=== PATIENT | female | born 1950 | race Caucasian/White ===

== ENCOUNTER 2018-03-29 08:45 | Emergency (ER) | payer MEDICARE, OTHER ==
[~2018-03-29] VITALS: Ht 162.6 cm; Wt 44.1 kg
[~2018-03-29 08:45] MED LIST: PREDNISONE10 MG PO
[2018-03-29 08:48] VITALS: Ht 162.6 cm; Wt 44.1 kg
[2018-03-29] MEDS ORDERED: LEXAPRO20 MG PO (08:52)
[2018-03-29] MEDS ORDERED: ALBUTEROL SULF8.5 GM INH (08:53)
[2018-03-29 09:14] LABS: BASOPHILS 0.3 % (0-2); EOSINOPHILS 0.3 % (0-7); HEMATOCRIT 39.2 % (36.0-48.0); HEMOGLOBIN 12.7 g/dL (12-16); IMMATURE GRANULOCYTES 0.2 % (0-5); LYMPHOCYTES 16.7 % (15-50); MCH 30.3 pg (26.0-34.0); MCHC 32.4 g/dL (31.0-37.0); MCV 93.6 fL (80.0-100.0); MEAN PLATELET VOLUME 9.4 fL (7.4-10.4); MONOCYTES 7.9 % (2-11); NEUTROPHILS 74.6 % (40-80); PLATELET COUNT 310 10x3/uL (130-400); RBC 4.19 10x6/uL (4.00-5.40); RDW 14.3 % (11.5-14.5)
[2018-03-29 09:29] LABS: APPEARANCE CLEAR (CLEAR); BILIRUBIN NEGATIVE (NEGATIVE); COLOR YELLOW (YELLOW); GLUCOSE NEGATIVE (NEGATIVE); KETONE LARGE mg/dL (NEGATIVE); NITRITE NEGATIVE (NEGATIVE); PROTEIN TRACE mg/dL (NEGATIVE); SPECIFIC GRAVITY 1.025 (1.005-1.020); UROBILINOGEN NORMAL (NORMAL)
[2018-03-29 09:30] LABS: BACTERIA FEW /hpf (NONE SEEN); EPITHELIAL CELLS 0-5 /hpf (0-5); HYALINE CAST OCC /lpf (NONE SEEN); MUCUS >1+ /lpf (NONE SEEN); RED CELLS - URINE 0-5 /hpf (0-5); WHITE CELLS - URINE 0-5 /hpf (0-5)
[2018-03-29 09:30] LABS: ALBUMIN 3.5 g/dL (3.4-5.0); ALKALINE PHOSPHATASE 43 U/L (46-116); ALT (SGPT) 9 U/L (10-68); BILIRUBIN - TOTAL 0.21 mg/dL (0.2-1.3); CALC OSMOLALITY 280 mosm/kg (275-300); CALCIUM 8.2 mg/dL (8.5-10.1); CARBON DIOXIDE 24.3 mmol/L (21.0-32.0); CHLORIDE - SERUM 103 mmol/L (98-107); CREATININE - SERUM 0.7 mg/dL (0.6-1.3); GLUCOSE 80 mg/dL (74-106); PROTEIN - SERUM 6.7 g/dL (6.4-8.2); SODIUM 140 mmol/L (136-145); UREA NITROGEN 20 mg/dL (7-18); eGFR NON AFRICAN AMERICAN 88 mL/min (90-120)
[2018-03-29 09:33] LABS: MAGNESIUM - SERUM 1.9 mg/dL (1.8-2.4); TROPONIN-I < 0.017 ng/mL (0.000-0.060)
[2018-03-29] MEDS ORDERED: ZOFRAN4 MG PO (11:38)
[2018-03-29 12:32] VITALS: BP 122/64
== END 2018-03-29 12:33 | disposition home or self-care (01) ==
LOC: D.ER 08:45
PROVIDERS: Family Medicine
DX: R09.02 Hypoxemia (principal); J44.9 Chronic obstructive pulmonary disease, unspecified; E86.0 Dehydration; F17.200 Nicotine dependence, unspecified, uncomplicated

== ENCOUNTER 2018-09-19 08:40 | Inpatient (IN) | payer MEDICARE, OTHER ==
[~2018-09-19] VITALS: Ht 162.6 cm; Wt 40.8 kg
--- NOTE | ~2018-09-19 | EC ---
PATIENT:GIORGIO GRAY DATE OF SERVICE: 09/19/18 SEX: F MEDICAL RECORD: [id number] DATE OF : [birth year] LOCATION:D.[facility] [place] AGE OF PATIENT: 68 ADMISSION DATE: 09/19/18 REFERRING PHYSICIAN: INTERPRETING PHYSICIAN: SUMEET FERNANDES MD ECHOCARDIOGRAM REPORT ECHO CHARGES 5 ECHO LIMITED Date: 09/20/18 CLINICAL DIAGNOSIS: SOB HX COPD ECHOCARDIOGRAPHIC MEASUREMENTS (adult normal given) AC root (d.<3.7cm) 3.7 cm LV Septum d (<1.2 cm> 1.2 cm Valve Excursion 2.2 cm LV Septum (systole) 1.4 cm Left Atria (s.<4.0cm> 4.0 cm LVPW d(<1.2cm) 1.2 cm RV (d.<2.3cm) 3.6 cm LVPW (sytole) 1.4 cm LV diastole(<5.6CM) 4.8 cm MV E-F(>70mm/sec) cm LV systole 2.7 cm LVOT Diameter cm MV exc.(>10mm) 2.2 cm Est.ejection fraction (50-75%) % DOPPLER: LVIT cm/sec A cm/sec E cm/sec LA cm/sec RVSP 21 mmHg LVOT cm/sec AOP1/2T m/s Asc. Ao cm/sec RVOT cm/sec RA 67 cm/sec PA 128 cm/sec AV Gradient Peak mmHg AV Mean mmHg AV Area cm MV Gradient Peak mmHg MV Mean mmHg MV Area cm COMMENTS: [employer] Production Line: Prasanna TILLMAN Marketing Writer: 1 Dr. Fernandes TAPE# PACS Pericardial Effusion N DATE OF SERVICE: 09/20/2018 PROCEDURE: Echocardiogram. FINDINGS: 1. Left ventricular chamber size is within normal limits. Left ventricular systolic function is normal. Overall ejection fraction estimated at 60%. 2. Left atrium is upper limits of normal at 4.0 cm. Right atrium and right ventricular chamber sizes are mildly dilated. 3. Valvular structures have normal structure and motion. ECHOCARDIOGRAM REPORT [id number] GIORGIO GRAY 4. Doppler interrogation reveals trace mitral regurgitation, trace tricuspid regurgitation, no other valvular insufficiency or stenosis. Pulmonary systolic pressure is estimated at 21 mmHg. 5. No evidence of pericardial effusion or left ventricular thrombus. TRANSINT:[id number] Voice Confirmation ID: [id number] DOCUMENT ID: [id number] SUMEET FERNANDES MD CC: [id number] DICTATION DATE: 09/20/18 1215 CLOTHING EXAMINER: 09/20/18 1228 ADM IN [place] [id number] [facility], [facility]
[~2018-09-19 08:40] MED LIST changes: +ALBUTEROL SULF8.5 GM INH; +LEXAPRO20 MG PO; +ZOFRAN4 MG PO
--- NOTE | 2018-09-19 09:05 | NUR ---
PT REFUSING ABGs AT THIS TIME.
--- NOTE | 2018-09-19 09:15 | NUR ---
PT REPORTS IMPROVED SOB AFTER INITIAL BREATHING TREATMENT.
[2018-09-19 09:32] LABS: BASOPHILS 0.1 % (0-2); EOSINOPHILS 0.4 % (0-7); HEMATOCRIT 36.2 % (36.0-48.0); HEMOGLOBIN 11.2 g/dL (12-16); IMMATURE GRANULOCYTES 0.3 % (0-5); LYMPHOCYTES 4.8 % (15-50); MCH 29.6 pg (26.0-34.0); MCHC 30.9 g/dL (31.0-37.0); MCV 95.8 fL (80.0-100.0); MEAN PLATELET VOLUME 9.1 fL (7.4-10.4); MONOCYTES 12.5 % (2-11); NEUTROPHILS 81.9 % (40-80); PLATELET COUNT 313 10x3/uL (130-400); RBC 3.78 10x6/uL (4.00-5.40); RDW 14.9 % (11.5-14.5); WBC 16.5 10x3/uL (4.8-10.8)
[2018-09-19 09:36] LABS: APTT 31.3 SECONDS (22.8-39.4); INR 1.19 (0.85-1.17); PROTIME 14.6 SECONDS (11.6-15.0)
[2018-09-19 09:38] LABS: D-DIMER-QUANTITATIVE 3.7 ug/mLFEU (0.20-0.54)
[2018-09-19 09:40] LABS: ALBUMIN 2.7 g/dL (3.4-5.0); ALKALINE PHOSPHATASE 75 U/L (46-116); ALT (SGPT) 8 U/L (10-68); BILIRUBIN - TOTAL 0.37 mg/dL (0.2-1.3); CALC OSMOLALITY 279 mosm/kg (275-300); CALCIUM 8.4 mg/dL (8.5-10.1); CARBON DIOXIDE 36.7 mmol/L (21.0-32.0); CHLORIDE - SERUM 99 mmol/L (98-107); CREATININE - SERUM 0.5 mg/dL (0.6-1.3); GLUCOSE 93 mg/dL (74-106); POTASSIUM - SERUM 4.2 mmol/L (3.5-5.1); PROTEIN - SERUM 6.7 g/dL (6.4-8.2); SODIUM 140 mmol/L (136-145); UREA NITROGEN 16 mg/dL (7-18); eGFR NON AFRICAN AMERICAN > 90 mL/min (90-120)
[2018-09-19 09:53] LABS: CKMB 0.5 U/L (0.0-3.6); CREATINE KINASE 64 UL (21-215); PRO BNP 709 pg/mL (0-125); TROPONIN-I < 0.017 ng/mL (0.000-0.060)
--- NOTE | 2018-09-19 10:15 | NUR ---
NO ACUTE CHANGES. WILL CON'T TO MONITOR.
[2018-09-19 10:21] VITALS: BP 114/66
[2018-09-19 14:17] VITALS: BP 86/49; BMI 15.4
[2018-09-19 17:32] LABS: % SATURATION 5 % (15-55); IRON 19 ug/dl (35-150); TOTAL IRON BIND CAPACITY 329 ug/dl (260-445); UNSAT IRON BIND CAPACITY 310 ug/dl (150-375)
[2018-09-19 18:03] VITALS: BP 104/57
[2018-09-19 20:00] VITALS: BP 106/64
--- NOTE | 2018-09-20 00:06 | NUR ---
PT RECEIVED WITH EYES OPEN WATCHING TV. NO S/S OF DISTRESS. MEDICATIONS ORDERS NOT IN PYXIS WITH BRAND SALES CONSULTANT NOTIFIED AND ORDERS PRINTED. RECEIVED MEDICATIONS AND GIVEN TO PT WHEN RECEIVED, PT TOLERATED WELL. PT STATES THAT SHE IS NOT DIABETIC AND EDUCATED THAT GLUCOSE WAS ELEVATED AND THAT STEROIDS ALSO INCREASE BLOOD GLUCOSE LEVELS, PT STATES UNDERSTANDING. NO NEEDS MADE KNOWN. CALL LIGHT IN REACH. WILL CONTINUE TO OBSERVE.
--- NOTE | 2018-09-20 02:19 | NUR ---
PT RESTING WITH EYES CLOSED AND CHEST RISING. NO S/S OF DISTRESS. WILL CONTINUE TO OBSERVE.
[2018-09-20 03:29] LABS: APPEARANCE CLEAR (CLEAR); COLOR YELLOW (YELLOW)
[2018-09-20 03:30] LABS: BILIRUBIN NEGATIVE (NEGATIVE); GLUCOSE 250 mg/dL (NEGATIVE); KETONE NEGATIVE (NEGATIVE); NITRITE NEGATIVE (NEGATIVE); PROTEIN 1+ mg/dL (NEGATIVE); UROBILINOGEN NORMAL (NORMAL)
[2018-09-20 03:31] LABS: BACTERIA FEW /hpf (NONE SEEN); EPITHELIAL CELLS 0-5 /hpf (0-5); RED CELLS - URINE 0-5 /hpf (0-5); WHITE CELLS - URINE 0-5 /hpf (0-5)
[2018-09-20 04:00] VITALS: BP 107/40
[2018-09-20 05:28] LABS: BASOPHILS 0 % (0-2); EOSINOPHILS 0 % (0-7); HEMATOCRIT 34.1 % (36.0-48.0); HEMOGLOBIN 10.5 g/dL (12-16); IMMATURE GRANULOCYTES 0.3 % (0-5); LYMPHOCYTES 3.1 % (15-50); MCHC 30.8 g/dL (31.0-37.0); MCV 94.2 fL (80.0-100.0); MONOCYTES 3.3 % (2-11); NEUTROPHILS 93.3 % (40-80); PLATELET COUNT 317 10x3/uL (130-400); RBC 3.62 10x6/uL (4.00-5.40); RDW 14.3 % (11.5-14.5)
[2018-09-20 05:45] LABS: CALCIUM 8.4 mg/dL (8.5-10.1); CARBON DIOXIDE 39.1 mmol/L (21.0-32.0); CHLORIDE - SERUM 98 mmol/L (98-107); CREATININE - SERUM 0.5 mg/dL (0.6-1.3); SODIUM 140 mmol/L (136-145); eGFR NON AFRICAN AMERICAN > 90 mL/min (90-120)
--- NOTE | 2018-09-20 05:49 | NUR ---
PT REFUSED TELEMETRY. DID WEAR IT FOR A COUPLE HOURS. HR 70 NORMAL SINUS. WILL CONTINUE TO OBSERVE.
[2018-09-20 05:50] LABS: CALC OSMOLALITY 280 mosm/kg (275-300); GLUCOSE 147 mg/dL (74-106); POTASSIUM - SERUM 3.5 mmol/L (3.5-5.1); UREA NITROGEN 9 mg/dL (7-18)
[2018-09-20 05:53] LABS: WBC 12.3 10x3/uL (4.8-10.8)
--- NOTE | 2018-09-20 07:37 | NUR ---
PT RECIEVING BREATHING TREATMENT. ALERT AND ORIENTED X4. NO S/S OF DISTRESS. BED LOW CALL LIGHT WITHIN REACH. WILL CONTINUE TO MONITOR.
--- NOTE | 2018-09-20 08:00 | NUR ---
LYING IN BED,WITHOUT NEEDS.CALL LIGHT IN REACH
[2018-09-20 08:15] VITALS: BP 117/72
[2018-09-20 12:15] VITALS: BP 99/57
[2018-09-20 13:26] VITALS: Ht 162.6 cm; Wt 40.8 kg
--- NOTE | 2018-09-20 13:59 | NUR ---
PT WALKING AROUND UNIT WITH PT. PT O2-92% ON ROOM AIR. NO S/S OF DISTRESS AT THIS TIME. BED LOW CALL LIGHT WITHIN REACH. WILL CONTINUE TO MONITOR.
--- NOTE | 2018-09-20 16:09 | NUR ---
PT 22G IV DC'D AT THIS TIME. CATHETER TIP IN PLACE. DISCHARGE,WOUND CARE, AND MEDICATION WENT OVER WITH PT. PT WHEELED TO FRONT AND LEFT IN PRIVATE VEHICILE. VITALS STABLE.
--- NOTE | 2018-09-20 16:24 | NUR ---
PT RESTING IN BED AT THIS TIME. NO S/S OF DISTRESS. VITALS STABLE. CALL LIGHT WITHIN REACH. WILL CONTINUE TO MONITOR.
--- NOTE | 2018-09-20 19:40 | NUR ---
SITTING UP IN BED. ALERT AND ORIENTED X4. UD IN PROGRESS. DENIES PAIN. SOB NOTED. O2 @ 3L/NC. RESP IRREG. BBS DIMINISHED BILAT. REPORTS PROD COUGH WITH CLEAR SPUTUM. BRUISES NOTED TO RUE. NO EDEMA NOTED. REFUSES SCDS AND TELEMETRY. SALINE LOCK NOTED TO LT WRIST. NO DISTRESS. AMBULATORY. SR ELEVATED X2. CL IN REACH.
[2018-09-20 20:19] VITALS: BP 110/65
--- NOTE | 2018-09-20 20:49 | NUR ---
REFUSED COLACE DURING MED PASS. STARTED TO REFUSE INSULIN. EXPLAINED TO PT THAT SHE WAS TAKING STEROIDS VIA IV AND IT WAS CAUSING HER GLUCOSE TO RISE AND THAT SHE NEEDED IT NOW. SHE AGREED.
--- NOTE | 2018-09-21 00:25 | NUR ---
LYING IN BED WITH EYES CLOSED. RESP EVEN AND NONLABORED. NO DISTRESS. CL IN REACH.
[2018-09-21 00:29] VITALS: BP 120/60
[2018-09-21 04:31] VITALS: BP 103/57
[2018-09-21 08:32] VITALS: BP 111/68
[2018-09-21 10:05] LABS: BASOPHILS 0.1 % (0-2); EOSINOPHILS 0 % (0-7); HEMATOCRIT 33.4 % (36.0-48.0); HEMOGLOBIN 10.5 g/dL (12-16); IMMATURE GRANULOCYTES 0.6 % (0-5); LYMPHOCYTES 4.3 % (15-50); MCHC 31.4 g/dL (31.0-37.0); MCV 92.3 fL (80.0-100.0); MEAN PLATELET VOLUME 8.7 fL (7.4-10.4); MONOCYTES 2.9 % (2-11); NEUTROPHILS 92.1 % (40-80); PLATELET COUNT 372 10x3/uL (130-400); RBC 3.62 10x6/uL (4.00-5.40); RDW 14.2 % (11.5-14.5)
[2018-09-21 10:08] LABS: WBC 18.3 10x3/uL (4.8-10.8)
[2018-09-21 10:41] LABS: ALBUMIN 2.5 g/dL (3.4-5.0); ALKALINE PHOSPHATASE 64 U/L (46-116); ALT (SGPT) 9 U/L (10-68); BILIRUBIN - TOTAL 0.17 mg/dL (0.2-1.3); CALC OSMOLALITY 280 mosm/kg (275-300); CALCIUM 8.5 mg/dL (8.5-10.1); CARBON DIOXIDE 35.1 mmol/L (21.0-32.0); CHLORIDE - SERUM 99 mmol/L (98-107); GLUCOSE 127 mg/dL (74-106); POTASSIUM - SERUM 3.1 mmol/L (3.5-5.1); PROTEIN - SERUM 5.9 g/dL (6.4-8.2); SODIUM 140 mmol/L (136-145); UREA NITROGEN 12 mg/dL (7-18); eGFR NON AFRICAN AMERICAN 88 mL/min (90-120)
[2018-09-21 10:42] LABS: CREATININE - SERUM 0.7 mg/dL (0.6-1.3)
--- NOTE | 2018-09-21 12:45 | NUR ---
PT IV INFILTRATED. 20G CATHETER DC'D WITH TIP IN PLACE. PT EATING LUNCH AT THIS TIME. WILL CONTINUE TO MONITOR.
--- NOTE | 2018-09-21 12:50 | MORECARE ---
CASE MANAGEMENT DISCHARGE SUMMARY PATIENT: GIORGIO GRAY UNIT: [id number] ADM DATE: 09/19/18 AGE: 68 : 51 SEX: F ROOM/BED: D.2230 AUTHOR: LYNN,DOC PHYSICIAN: REFERRING PHYSICIAN: IVY CONTI MD DATE OF SERVICE: 09/21/18 Discharge Plan Patient Name: GIORGIO GRAY Facility: [facility]:[place] : 1950 Planned Disposition: Home Anticipated Discharge Date: Discharge Date: Expected LOS: Initial Reviewer: [email or web address] Initial Review Date: 09/21/2018 Generated: 09/21/18 1:49 pm Comments DCP- Discharge Planning Updated by [id number]: Rena Brandt on 09/21/18 11:[address] Patient Name: GIORGIO GRAY Admission Status: ER Accout number: [id number] Admission Date: 09-19-2018 : 1950 Admission Diagnosis: Attending: IVY CONTI Current LOS: 2 Anticipated DC Date: Planned Disposition: Home Primary Insurance: MEDICARE A & B Discharge Planning Comments: CM met with patient to complete initial dc planning assessment. CM educated patient on the CM role and verbal consent given by patient to complete assessment. CM verified patient's address, phone number, and emergency contact phone numbers. Patient lives at home with family and reports She is independent in hER care. At discharge patient plans to return home and feels this is a safe discharge. CM discussed availability of home health, rehab services, and medical equipment. Patient denied known discharge needs at this time.. . CM will continue to follow and will assist as needed with dc plans/needs. Unstacker: Rena Brandt DCPIA - Discharge Planning Initial Assessment Updated by [email or web address]: Rena Brandt on 09/21/18 12:44 pm * Is the patient Alert and Oriented? Yes * How many steps to enter\exit or inside your home? * PCP MARY * [facility] * Preadmission Environment Home with Family * ADLs Independent * Equipment Oxygen * Other Equipment NEBULIZER * Verbal permission to speak to the caregivers and representatives has been obtained from the patient. N/A * Additional services required to return to the preadmission environment? No * Can the patient safely return to the preadmission environment? Yes * Has this patient been hospitalized within the prior 30 days at any hospital? No Patient Name: GIORGIO GRAY Page [id number] at 1250 All edits/amendments must be made on the electronic document DICTATION DATE: 09/21/181248 PRODUCT DEVELOPMENT ASSISTANT: ANNE 09/21/181248 RPT#: [id number] DC DATE: STATUS: ADM IN [facility] [address] [place] [address] END OF REPORT
[2018-09-21 13:15] VITALS: BP 101/61
--- NOTE | 2018-09-21 14:39 | NUR ---
PATIENT FOUND ON RA AND SP02 WAS 86%. PLACED ON 2L/NC AND SP02 NOW 93%
--- NOTE | 2018-09-21 14:46 | MORECARE ---
CASE MANAGEMENT DISCHARGE SUMMARY PATIENT: GIORGIO GRAY UNIT: [id number] ADM DATE: 09/19/18 AGE: 68 : 51 SEX: F ROOM/BED: D.2230 AUTHOR: LYNN,DOC PHYSICIAN: REFERRING PHYSICIAN: IVY CONTI MD DATE OF SERVICE: 09/21/18 Discharge Plan Patient Name: GIORGIO GRAY Facility: [facility]:[place] : 1950 Planned Disposition: Home Anticipated Discharge Date: Discharge Date: Expected LOS: Initial Reviewer: [email or web address] Initial Review Date: 09/21/2018 Generated: 09/21/18 3:46 pm Comments DCP- Discharge Planning Updated by [id number]: Raquel Cooley on 09/21/18 1:[address] CM noted the entry by Dr. Mckinley mentioning Trilogy. I called Dr. Mckinley and he does not want me to order Trilogy for the patient. I met with patient, she is alone in the room. She will be moving Thursday to [place], [place]. She currently uses [facility] for her oxygen and nebulizer medications. I have called [facility] and they do not have any companies in [place] per Joanne. I spoke with the patient and she states she will use [facility] once she gets there. She states she will take all her equipment with her on the move and when she is established with [facility], she will change. I gave her a list of pulmonologists in [place] per her request and provided her the number for [facility] I spoke with Chante at the [facility] in [facility] and clinical faxed. Chante states they will need chart notes and oxygen saturation test and they will get whatever else they need from her doctors office. Walk test and notes faxed to [phone]. CM will continue to follow and assist with discharge planning/needs. DCP- Discharge Planning Updated by [id number]: Rnea Brandt on 09/21/18 11:[address] Patient Name: GIORGIO GRAY Admission Status: ER Accout number: [id number] Admission Date: 09-19-2018 : 1950 Admission Diagnosis: Attending: IVY CONTI Current LOS: 2 Anticipated DC Date: Planned Disposition: Home Primary Insurance: MEDICARE A & B Discharge Planning Comments: CM met with patient to complete initial dc planning assessment. CM educated patient on the CM role and verbal consent given by patient to complete assessment. CM verified patient's address, phone number, and emergency contact phone numbers. Patient lives at home with family and reports She is independent in hER care. At discharge patient plans to return home and feels this is a safe discharge. CM discussed availability of home health, rehab services, and medical equipment. Patient denied known discharge needs at this time.. . CM will continue to follow and will assist as needed with dc plans/needs. Apartment Leasing Agent: Rena Brandt DCPIA - Discharge Planning Initial Assessment Updated by [email or web address]: Rena Brandt on 09/21/18 12:44 pm * Is the patient Alert and Oriented? Yes * How many steps to enter\exit or inside your home? * PCP MARY * [facility] * Preadmission Environment Home with Family * ADLs Independent * Equipment Oxygen * Other Equipment NEBULIZER * Verbal permission to speak to the caregivers and representatives has been obtained from the patient. N/A * Additional services required to return to the preadmission environment? No * Can the patient safely return to the preadmission environment? Yes * Has this patient been hospitalized within the prior 30 days at any hospital? No Last DP export: 09/21/18 11:50 a Patient Name: GIORGIO GRAY Page [phone] at 1446 All edits/amendments must be made on the electronic document DICTATION DATE: 09/21/181445 EDI DEVELOPER: ANNE 09/21/18 1446 RPT#: [id number] DC DATE: STATUS: ADM IN [facility] [address] [place] [address] END OF REPORT
--- NOTE | 2018-09-21 14:55 | MORECARE ---
CASE MANAGEMENT DISCHARGE SUMMARY PATIENT: GIORGIO GRAY UNIT: [id number] ADM DATE: 09/19/18 AGE: 68 : 51 SEX: F ROOM/BED: D.2230 AUTHOR: LYNN,DOC PHYSICIAN: REFERRING PHYSICIAN: IVY CONTI MD DATE OF SERVICE: 09/21/18 Discharge Plan Patient Name: GIORGIO GRAY Facility: [facility]:[place] : 1950 Planned Disposition: Home Anticipated Discharge Date: Discharge Date: Expected LOS: Initial Reviewer: [email or web address] Initial Review Date: 09/21/2018 Generated: 09/21/18 3:55 pm Comments DCP- Discharge Planning Updated by [email or web address]: Raquel Cooley on 09/21/18 1:[address] CM noted the entry by Dr. Mckinley mentioning Trilogy. I called Dr. Mckinley and he does not want me to order Trilogy for the patient. I met with patient, she is alone in the room. She will be moving Thursday to [place] She currently uses [facility] for her oxygen and nebulizer medications. I have called [facility] and they do not have any companies in [place] per Joanne. I spoke with the patient and she states she will use [facility] once she gets there. She states she will take all her equipment with her on the move and when she is established with [facility], she will change. I gave her a list of pulmonologists in [place] per her request and provided her the number for [facility] I spoke with Chante at the [facility] in [facility] and clinical faxed. Chante states they will need chart notes and oxygen saturation test and they will get whatever else they need from her doctors office. Walk test and notes faxed to [phone]. CM will continue to follow and assist with discharge planning/needs. DCP- Discharge Planning Updated by [id number]: Rena Brandt on 09/21/18 11:[address] Patient Name: GIORGIO GRAY Admission Status: ER Accout number: [id number] Admission Date: 09-19-2018 : 1950 Admission Diagnosis: Attending: IVY CONTI Current LOS: 2 Anticipated DC Date: Planned Disposition: Home Primary Insurance: MEDICARE A & B Discharge Planning Comments: CM met with patient to complete initial dc planning assessment. CM educated patient on the CM role and verbal consent given by patient to complete assessment. CM verified patient's address, phone number, and emergency contact phone numbers. Patient lives at home with family and reports She is independent in hER care. At discharge patient plans to return home and feels this is a safe discharge. CM discussed availability of home health, rehab services, and medical equipment. Patient denied known discharge needs at this time.. . CM will continue to follow and will assist as needed with dc plans/needs. Student Education Specialist: Rena Brandt DCPIA - Discharge Planning Initial Assessment Updated by [id number]: Rena Brandt on 09/21/18 12:44 pm * Is the patient Alert and Oriented? Yes * How many steps to enter\exit or inside your home? * PCP MARY * [facility] * Preadmission Environment Home with Family * ADLs Independent * Equipment Oxygen * Other Equipment NEBULIZER * Verbal permission to speak to the caregivers and representatives has been obtained from the patient. N/A * Additional services required to return to the preadmission environment? No * Can the patient safely return to the preadmission environment? Yes * Has this patient been hospitalized within the prior 30 days at any hospital? No External Providers External Provider: OTHER-OTHER Next Contact Date: Service Request Date: Service Type: Resolution: Reviewer: Comments: Coverage Notice Reviewer: [id number] Khushbu Raquel Cooley Notice Issued Date-Time: 09/21/2018 14:53 Notice Type: IM Discharge Notice Notice Delivered To: Patient Relationship to Patient: Self Electrical Engineering Designer Name: Delivery Method: - Erin Days: Prior Verbal Notification: Recipient Understood Notice: Recipient Signature: Med Rec Note Co-signed by Attending: Coverage Notice Comment: Last DP export: 09/21/18 1:46 p Patient Name: GIORGIO GRAY Page [phone] at 6459 All edits/amendments must be made on the electronic document DICTATION DATE: 09/21/18 0544 PUMP SERVICE SUPERVISOR: ANNE 09/21/18 2864 RPT#: [id number] DC DATE: STATUS: ADM IN [facility] [address] [place] [address] END OF REPORT
[2018-09-21 17:33] VITALS: BP 99/67
--- NOTE | 2018-09-21 19:15 | NUR ---
SITTING UP IN BED WATCHING TV. ALERT AND ORIENTED X4. IV SITE TO THE LT UPPER ARM, SALINE LOCK AND DRESSING INTACT. NC @3L. DENIES PAIN OR DISCOMFORT AT THIS TIME. BED IN THE LOWEST POSITION AND CALL LIGHT WITHIN REACH. CONTINUE WITH PLAN OF CARE.
[2018-09-21 21:14] VITALS: BP 103/62
[2018-09-22 01:27] VITALS: BP 116/72
--- NOTE | 2018-09-22 02:54 | NUR ---
LAYING IN BED SLEEPING. SHOWS NO SIGNS OF DISTRESS OR DISCOMFORT. BED IN LOWEST POSITION, CL WITHIN REACH. WILL CONTINUE TO MONTIOR.
[2018-09-22 05:05] VITALS: BP 113/76
[2018-09-22 07:05] LABS: ALBUMIN 2.5 g/dL (3.4-5.0); ALKALINE PHOSPHATASE 60 U/L (46-116); ALT (SGPT) 11 U/L (10-68); BILIRUBIN - TOTAL 0.21 mg/dL (0.2-1.3); CALC OSMOLALITY 282 mosm/kg (275-300); CALCIUM 8.3 mg/dL (8.5-10.1); CARBON DIOXIDE 37.6 mmol/L (21.0-32.0); CHLORIDE - SERUM 101 mmol/L (98-107); GLUCOSE 113 mg/dL (74-106); PROTEIN - SERUM 5.8 g/dL (6.4-8.2); SODIUM 141 mmol/L (136-145); UREA NITROGEN 14 mg/dL (7-18)
[2018-09-22 07:06] LABS: CREATININE - SERUM 0.5 mg/dL (0.6-1.3); POTASSIUM - SERUM 4.2 mmol/L (3.5-5.1); eGFR NON AFRICAN AMERICAN > 90 mL/min (90-120)
[2018-09-22 07:12] LABS: BASOPHILS 0.1 % (0-2); EOSINOPHILS 0 % (0-7); HEMATOCRIT 34.7 % (36.0-48.0); LYMPHOCYTES 9.4 % (15-50); MCH 29.2 pg (26.0-34.0); MCHC 31.7 g/dL (31.0-37.0); MEAN PLATELET VOLUME 9.3 fL (7.4-10.4); MONOCYTES 6.1 % (2-11); NEUTROPHILS 83.4 % (40-80); PLATELET COUNT 410 10x3/uL (130-400); RBC 3.77 10x6/uL (4.00-5.40); RDW 14.5 % (11.5-14.5); WBC 15.7 10x3/uL (4.8-10.8)
[2018-09-22 09:10] VITALS: BP 117/72
[2018-09-22] MEDS ORDERED: DALIRESP500 MCG PO (11:12)
[2018-09-22] MEDS ORDERED: SINGULAIR10 MG PO (11:12)
[2018-09-22] MEDS ORDERED: IPRAT-ALBUT 0.5-3 ML INH (11:12)
[2018-09-22] MEDS ORDERED: TESSALON PERLE100 MG PO (11:12)
[2018-09-22] MEDS ORDERED: MUCINEX DM ER1 EAC1 PO (11:12)
[2018-09-22] MEDS ORDERED: PREDNISONE10 MG PO (11:13)
[2018-09-22] MEDS ORDERED: FLUTICASONE PRO16 GM NASAL (11:13)
[2018-09-22] MEDS ORDERED: FLORAJEN3 CAPS460 MG PO (11:13)
[2018-09-22] MEDS ORDERED: Nicoderm [PBKC] TRANSDERM (11:14)
[2018-09-22] MEDS ORDERED: LEVAQUIN750 MG PO (11:14)
[2018-09-22 12:03] VITALS: BP 109/71
--- NOTE | 2018-09-22 12:19 | MORECARE ---
CASE MANAGEMENT DISCHARGE SUMMARY PATIENT: GIORGIO GRAY UNIT: [id number] ADM DATE: 09/19/18 AGE: 68 : 51 SEX: F ROOM/BED: D.2230 AUTHOR: MOLLY BAILEY PHYSICIAN: REFERRING PHYSICIAN: IVY CONTI MD DATE OF SERVICE: 09/22/18 Discharge Plan Patient Name: GIORGIO GRAY Facility: [facility]:[place] : 1950 Planned Disposition: Home Anticipated Discharge Date: Discharge Date: Expected LOS: Initial Reviewer: [email or web address] Initial Review Date: 09/21/2018 Generated: 09/22/18 1:19 pm Comments DCP- Discharge Planning Updated by [id number]: Raquel Cooley on 09/22/18 11:[address] Patient Name: GIORGIO GRAY Encounter No: [id number] : 1950 Primary Insurance: MEDICARE A & B Anticipated DC Date: Planned Disposition: Home External Planned Provider: : DCP follow-up note: Patient in agreement with discharge plan. No changes to plan. Patient states that her family is bringing her portable to travel home with. States she has 6 portable tanks to travel with to [place]. She states she will make an appointment with a primary doctor and supervisor tree trimming when she gets to [place]. States she will be living with her mother. Case management will follow and assist as needed. Raquel Cooley DCP- Discharge Planning Updated by [email or web address]: Raquel Cooley on 09/21/18 1:[address] CM noted the entry by Dr. Mckinley mentioning Trilogy. I called Dr. Mckinley and he does not want me to order Trilogy for the patient. I met with patient, she is alone in the room. She will be moving Thursday to [place] She currently uses [facility] for her oxygen and nebulizer medications. I have called [facility] and they do not have any companies in [place] per Joanne. I spoke with the patient and she states she will use [facility] once she gets there. She states she will take all her equipment with her on the move and when she is established with [facility], she will change. I gave her a list of pulmonologists in [place] per her request and provided her the number for [facility] I spoke with Chante at the [facility] in [facility] and clinical faxed. Chante states they will need chart notes and oxygen saturation test and they will get whatever else they need from her doctors office. Walk test and notes faxed to [phone]. CM will continue to follow and assist with discharge planning/needs. DCP- Discharge Planning Updated by [email or web address]: Rena Brandt on 09/21/18 11:[address] Patient Name: GIORGIO GRAY Admission Status: ER Accout number: [id number] Admission Date: 09-19-2018 : 1950 Admission Diagnosis: Attending: IVY CONTI Current LOS: 2 Anticipated DC Date: Planned Disposition: Home Primary Insurance: MEDICARE A & B Discharge Planning Comments: CM met with patient to complete initial dc planning assessment. CM educated patient on the CM role and verbal consent given by patient to complete assessment. CM verified patient's address, phone number, and emergency contact phone numbers. Patient lives at home with family and reports She is independent in hER care. At discharge patient plans to return home and feels this is a safe discharge. CM discussed availability of home health, rehab services, and medical equipment. Patient denied known discharge needs at this time.. . CM will continue to follow and will assist as needed with dc plans/needs. Roll Cutting Operator: Rena Brandt DCPIA - Discharge Planning Initial Assessment Updated by [email or web address]: Rena Benjaminman on 09/21/18 12:44 pm * Is the patient Alert and Oriented? Yes * How many steps to enter\exit or inside your home? * PCP MARY * [facility] * Preadmission Environment Home with Family * ADLs Independent * Equipment Oxygen * Other Equipment NEBULIZER * Verbal permission to speak to the caregivers and representatives has been obtained from the patient. N/A * Additional services required to return to the preadmission environment? No * Can the patient safely return to the preadmission environment? Yes * Has this patient been hospitalized within the prior 30 days at any hospital? No Coverage Notice Reviewer: [email or web address] Khushbu Cooley Notice Issued Date-Time: 09/21/2018 14:53 Notice Type: IM Discharge Notice Notice Delivered To: Patient Relationship to Patient: Self Public Health Veterinarian Name: Delivery Method: HAND - Hand Delivered Erin Days: Prior Verbal Notification: Recipient Understood Notice: Yes Recipient Signature: Yes Med Rec Note Co-signed by Attending: Coverage Notice Comment: WINTER for [place] (in [place]) Reviewer: [email or web address] Khushbu Cooley Notice Issued Date-Time: 09/22/2018 12:11 Notice Type: IM Discharge Notice Notice Delivered To: Patient Relationship to Patient: Self Public Health Veterinarian Name: Delivery Method: HAND - Hand Delivered Erin Days: Prior Verbal Notification: Recipient Understood Notice: Yes Recipient Signature: Yes Med Rec Note Co-signed by Attending: Coverage Notice Comment: IMM explained, signed, given, copy placed in MR Last DP export: 09/21/18 1:55 p Patient Name: GIORGIO GRAY Page [phone] at 1219 All edits/amendments must be made on the electronic document DICTATION DATE: 09/22/18 1219 CHIEF SCIENTIFIC OFFICER: ANNE 09/22/18 1219 RPT#: [id number] DC DATE: STATUS: ADM IN [facility] [address] [place] [address] END OF REPORT
--- NOTE | 2018-09-22 14:23 | NUR ---
PT DISCHARGING HOME WITH SON IN LAW VIA WHEELCHAIR ACCOMPANIED BY VOLUNTEERS. DISCONTINUED IV, CATHETER TIP INTACT. PT DENIES ANYTHING FURHTER.
[2018-09-23 05:09] LABS: IMMUNOGLOBULIN E 20 IU/mL (6-495)
== END 2018-09-22 14:46 | disposition home or self-care (01) | DRG 193 ==
LOC: D.ER 08:40 → D.MS 10:58
PROVIDERS: Emergency Medicine; Family Medicine; Internal Medicine Pulmonary Disease; ADMIT Internal Medicine Nephrology; ATTEND Internal Medicine Nephrology
DX: J18.9 Pneumonia, unspecified organism (principal); J96.21 Acute and chronic respiratory failure with hypoxia; J44.0 Chronic obstructive pulmonary disease with (acute) lower respiratory infection; J90 Pleural effusion, not elsewhere classified; D64.9 Anemia, unspecified